=== PATIENT | male | born 2000 | race Caucasian/White ===

== ENCOUNTER 2020-09-11 01:31 | Emergency (ER) | payer BC, SELFPAY ==
[2020-09-11 01:35] VITALS: BP 102/60; PULSE 71; RESP 18; TEMP 35.7; O2SAT 100
[2020-09-11 03:18] LABS: Basophils Percent Auto 0.2 % (0.2-1.2); Eosinophils Absolute Auto 0.1 K/mm3 (0-0.3); Eosinophils Percent Auto 0.6 % (0-4.4); Hematocrit 41.7 % (42.0-52.0); Hemoglobin 14.6 g/dL (14.0-18.0); Immature Granulocyte Absolute 0.09 K/mm3 (0.00-0.031); Immature Granulocyte Percent A 0.5 % (0-0.5); Lymphocytes Absolute Auto 1.93 K/mm3 (0.9-3.2); Lymphocytes Percent Auto 11.2 % (18.3-44.2); Mean Corpuscular Hemoglobin 31.9 pg (26-34); Mean Corpuscular Volume 91.2 fl (80-100); Mean Platelet Volume 10.3 fl (7.4-10.4); Monocytes Percent Auto 5.8 % (2.6-8.5); Neutrophils Percent Auto 81.7 % (45.5-73.1); Platelet Count Result 233 k/mm3 (150-375); Red Blood Count 4.57 M/mm3 (4.6-6.20); Red Cell Distribution Width 11.3 % (11.5-14.5); White Blood Count 17.2 K/mm3 (4.5-10.0)
[2020-09-11 03:27] LABS: Magnesium 1.9 mg/dL (1.6-2.3)
[2020-09-11] MEDS: ONDANSETRON INJ 4 MG/2 ML VIAL IV PUSH (03:28)
[2020-09-11] MEDS: PANTOPRAZOLE SODIUM IV 40 MG VIAL IV PUSH (03:28)
[2020-09-11 03:43] LABS: Alanine Aminotransferase 32 U/L (4-50); Albumin Level 4.8 g/dL (3.5-5.1); Alkaline Phosphatase 67 U/L (38-126); Anion Gap 10 mmol/L (8-16); Aspartate Amino Transferase 30 U/L (17-59); Bilirubin,Total 0.4 mg/dL (0.2-1.3); Blood Urea Nitrogen 13 mg/dL (9-20); Calcium 9.3 mg/dL (8.4-10.2); Carbon Dioxide 28 mmol/L (22-30); Chloride 101 mmol/L (98-107); Estimated CRCL calculation 121 ml/min; Estimated Glomerular Filt Rate > 60; Glucose 116 mg/dL (75-110); Lipase 68 U/L (23-300); Potassium 4.3 mmol/L (3.4-5.0); Sodium 139 mmol/L (137-145)
--- NOTE | 2020-09-11 04:11 | ED.ALCOHOL ---
HPI - Alcohol General Chief Complaint: Alcohol Stated Complaint: etoh, n/v Time Seen by Provider: 09/11/20 03:32 Source: patient Mode of arrival: ambulatory Limitations: no limitations History of Present Illness HPI narrative: THis patient is a 19 year old male with history of alcohol abuse who presents for evaluation of nausea and vomiting. He admitted to drink a significant amount of alcohol yesterday. He later developed nausea and vomiting. He states he feels much better. He denies abdominal pain, fever, or diarrhea. He felt mildly weak and lightheaded. Related Data Home Medications Medication Instructions Recorded Confirmed albuterol sulfate 2 mcg INHALATION QID 09/11/20 09/11/20 Allergies Allergy/AdvReac Type Severity Reaction Status Date / Time No Known Allergies Allergy Verified 09/11/20 04:06 Review of Systems Review of Systems: All systems reviewed & are unremarkable except as noted in HPI and below Constitutional: Constitutional: Denies chills and Denies fever(s) Cardiovascular: Cardiovascular: Denies chest pain Respiratory: Respiratory: Denies dyspnea Gastrointestinal: Gastrointestinal: Denies abdominal pain, Reports nausea and Reports vomiting PMFSH Past Medical History Medical History (Updated 09/11/20 @ 06:26 by Oneyda Luna MD) Patient denies medical problems Surgical History Surgical History (Updated 09/11/20 @ 05:32 by Oneyda Luna MD) No pertinent past surgical history Social History Social History (Updated 09/11/20 @ 05:32 by Oneyda Luna MD) Alcohol intake: current Substance use: never Exam Narrative: Exam Narrative: GENERAL: Well-appearing, well-nourished, and in no acute distress. HEAD: Normocephalic, atraumatic EYES: PERRLA and EOMI, conjunctiva clear without discharge THROAT:Mucous membranes moist, Oropharynx normal without erythema, exudate, peritonsillar swelling or fluctuance NECK: Supple, without lymphadenopathy or mass RESPIRATORY: No respiratory distress, Airway patent, Respirations non-labored, Clear to auscultation without rales, rhonchi or wheeze HEART: Regular rate and rhythm. No murmur heard. Normal peripheral pulses. ABDOMEN: Soft, nontender, nondistended, normal active bowel sounds. No masses. No rebound or guarding, No organomegaly. EXTREMITIES: No edema, normal strength with full range of motion. SKIN: Warm, dry, normal color without rash NEURO: Alert and oriented x3. CN 2-12 grossly intact. No focal deficits. PSYCH: Normal mood and affect. Course Reevaluation(s) Reevaluation #1: PAtient denies any nausea or vomiting. He is gettting a PO challenge Date: 09/11/20 Time: 05:32 Vital Signs Vital signs: Vital Signs Temperature 96.3 F L 09/11/20 01:35 Pulse Rate 71 09/11/20 01:35 Respiratory Rate 18 09/11/20 01:35 Blood Pressure 102/60 09/11/20 01:35 Pulse Oximetry 100 09/11/20 01:35 Temperature 96.3 F L 09/11/20 01:35 Pulse Rate 69 09/11/20 06:45 Respiratory Rate 18 09/11/20 06:45 Blood Pressure 108/67 09/11/20 06:45 Pulse Oximetry 98 09/11/20 06:45 MDM - Alcohol Lab Data Attestation: I reviewed the patient's lab results. Result diagrams: 09/11/20 03:05 09/11/20 03:05 Labs: Lab Results 09/11/20 09/11/20 09/11/20 Range/Units 03:05 03:05 03:05 WBC 17.2 H (4.5-10.0) K/mm3 RBC 4.57 L (4.6-6.20) M/mm3 Hgb 14.6 (14.0-18.0) g/dL Hct 41.7 L (42.0-52.0) % MCV 91.2 (80-100) fl MCH 31.9 (26-34) pg MCHC 35.0 (32-36) g/dl RDW 11.3 L (11.5-14.5) % Plt Count 233 (150-375) k/mm3 MPV 10.3 (7.4-10.4) fl Immature Gran % (Auto) 0.5 (0-0.5) % Neut % (Auto) 81.7 H (45.5-73.1) % Lymph % (Auto) 11.2 L (18.3-44.2) % Johnson % (Auto) 5.8 (2.6-8.5) % Eos % (Auto) 0.6 (0-4.4) % Baso % (Auto) 0.2 (0.2-1.2) % Lymph # (Auto) 1.93 (0.9-3.2) K/mm3 Johnson # (Auto) 1.0 H (0.1-0
[2020-09-11 04:30] VITALS: BP 121/71; PULSE 67; RESP 18; O2SAT 96
[2020-09-11 06:45] VITALS: BP 108/67; PULSE 69; RESP 18; O2SAT 98
== END 2020-09-11 06:50 | disposition home or self-care (01) ==
PROVIDERS: Emergency Provider General Practice
DX: K29.20 Alcoholic gastritis without bleeding (principal); F10.10 Alcohol abuse, uncomplicated
CPT/HCPCS: 36415; 80053; 83690; 83735; 85025; 96365; 96366; 96375; 99284; C9113; J2405; J3411; J3475; J7030